=== PATIENT | female | born 1980 | race Caucasian/White ===

== ENCOUNTER 2018-07-21 16:21 | Inpatient (IN) | payer BC ==
[~2018-07-21] VITALS: Ht 160.1 cm; Wt 118.2 kg
[2018-07-22] VITALS (64 sets, daily range): BP systolic 108–155; BP diastolic 56–93; PULSE 80–111; TEMP 98.1–98.4
--- NOTE | 2018-07-22 07:05 | NUR ---
Patient ambulatory to LR5, changed into gowm, FHR/TOCO monitors placed and explained. Patient denies any regular contrations, vaginal bleeding, or leaking of fluid. VSS. 0715: SVE-2-3//-3 0725: IV started in right hand, blood drawn and to lab, and LR infusing. Plan of care discussed, consents gone over and signed, and packet given. 0740: Pitocin started per protocol at 2mU. Will continue to monitor.
[2018-07-22] MEDS ORDERED: CELEXA10 MG PO (07:33)
[2018-07-22] MEDS ORDERED: TIROSINT125 MC1 PO (07:33)
[2018-07-22] MEDS ORDERED: GLUCOPHAGE500 MG/TAB PO (07:34)
[2018-07-22] MEDS ORDERED: ZYRTEC 10MG10 MG PO (07:34)
[2018-07-22] MEDS ORDERED: PRENATAL MVI (07:34)
[2018-07-22 08:15] LABS: BASO # 0.1 (0.0-0.2); BASO % 0.4 % (0.0-2.0); EOS # 0.1 (0.0-0.7); EOS % 1.2 % (0-4.0); GRAN # 7.4 (1.4-6.5); GRAN % 65.9 % (42.2-75.2); HEMOGLOBIN 11.3 g/dl (12.5-16.0); LYMPH # 2.5 (1.2-3.4); LYMPH % 22.6 % (20.0-51.0); MEAN CELL VOLUME 88 fl (80.0-100.0); MEAN CORPUSCULAR HEMOGLOBIN 29 pg (27.0-31.0); MEAN CORPUSCULAR HGB CONC 33 g/dl (33.0-37.0); MEAN PLATELET VOLUME 10.8 fl (7.4-10.4); MONO # 0.9 (0.1-0.6); MONO % 7.7 % (1.7-9.3); PLATELET COUNT 326 K/mm3 (130-400); RED BLOOD COUNT 3.89 M/mm3 (4.10-5.30)
[2018-07-22 08:16] LABS: HEMATOCRIT 34.3 % (37.0-47.0)
--- NOTE | 2018-07-22 08:40 | NUR ---
Roles at nurses station reviewing FHR strip. 0845: Roles at bedside and SVE per physician / AROM not attempted at this time due to head being to high. Plan of care discussed and will continue to monitor. No new orders at this time.
--- NOTE | 2018-07-22 10:20 | NUR ---
Patient off monitor to void. 1023: Patient back on monitor and on birthing ball at bedside.
--- NOTE | 2018-07-22 13:20 | NUR ---
Roles at bedside to assess patient and FHR strip SVE-per physician /-3 and unable to AROM at this time. Dr. Chahal advises patient that she needs to make good change in order to get epidural and that in another 4 hours or when she returns after clinic and still no change in cervix than may send home, patient verbalizes understanding. Will continue to ugo.
--- NOTE | 2018-07-22 15:00 | NUR ---
FHR baseline 135bpm and maternal heart tracing at this time due to position. FHR adjusted. Patient off monitor to void.
--- NOTE | 2018-07-22 17:40 | NUR ---
Roles at bedside to assess patient and review FHR strip. 1742: SVE per physician 2-3//-2 and AROM done with clear fluid noted. Patient tolerates well and plan of care discussed.
--- NOTE | 2018-07-22 22:18 | NUR ---
2218- MARGOTH Gao at the bedside for epidural placement. 2220- Assisted pt to sitting upright position for epidural placement. SPO2 monitor started. EFM intermittently tracing maternal HR as coorelates with SPO2 monitor. 2235- Single shot given per [employer]. See anesthesia record for details. 2240- Assisted pt back to supine position in bed with left wedge. EFM and toco monitors readjusted. Plan of care reviewed.
[2018-07-23] VITALS (63 sets, daily range): BP systolic 90–135; BP diastolic 45–81; PULSE 85–137; TEMP 97.3–100.2
--- NOTE | 2018-07-23 06:05 | NUR ---
Roles at the bedside. FHR tracing reviewed. IUPC placed. Plan of care reviewed.
--- NOTE | 2018-07-23 06:15 | NUR ---
Roles at nurses station reviewing FHR strip/contractions. 0718: Dr Chahal at bedside and SVE-/-1 with bloody show at this time. 0726: Patient left lateral with right leg up across body resting on stirrup. -Orders from Dr Chahal to increase pitocin to 40mU and give ampicillin 2mg IV.
--- NOTE | 2018-07-23 08:00 | NUR ---
FHR baseline 145bpm. 0803: Patient repositioning at this time due to maternal position, Maternal heart rate tracing. Patient turned right lateral and left leg in stirrup. Difficulty tracing FHR and monitor adjusted.
--- NOTE | 2018-07-23 08:38 | NUR ---
Roles at bedside and SVE-/ with no change. Plan of care discussed at this time and need for eventually is discussed. Decision to recheck SVE in an hour and if no change will go back for . Risks and plan discussed per Roles and questions answered. Patient verbalizes understanding and agrees with plan
--- NOTE | 2018-07-23 09:00 | NUR ---
Dr Chahal continues to watch FHR strip at nurses station. 0942: SVE per physician / with bloody show and patient more uncomfortable with contractions. Orders per Roles to increase pitocin to 40Mu when time. 1000: Patient wedged right.
--- NOTE | 2018-07-23 09:20 | NUR ---
Orders from Dr. Chahal to increase pitocin at this time.
--- NOTE | 2018-07-23 10:00 | NUR ---
Dr Roles leaving unit and states she will be back to recheck EDWIN.
--- NOTE | 2018-07-23 10:47 | NUR ---
FHR baseline of 160 bpm and patient turned right lateral and maternal heart rate begins to trace. Pulse ox on patient and maternal heart rate 120s-130s bpm. FHR monitor adjusted.
--- NOTE | 2018-07-23 10:55 | NUR ---
FHR baseline 160bpm and maternal heart rate elevated. FHR monitor also trying to trace maternal heart rate and showing variable like decelerations. FHR monitor adjusted.
--- NOTE | 2018-07-23 11:05 | NUR ---
Roles at nurses station and evaluating FHR strip and maternal heartrate and updated. 1110: SVE-7/-1 and no change, Dr Roles explains that FHR has increasing and patients temperature/heart rate increasing may be indication of infection starting and decision for made. Pitocin off. Patient prepped for surgery, superpubic are shaved and cleaned with CHG. 1120: Off monitors and to OR.
--- NOTE | 2018-07-23 14:20 | NUR ---
New chucks and pad under patient. Pericare/kemp care done and abdominal binder applied.
--- NOTE | 2018-07-23 20:00 | NUR ---
VS and assessment completed at this time. SCDs removed from bilateral LE. Ambulated well to restroom at this time. Educated on pericare. Kemp catheter removed; 100mls of tea colored urine noted in kemp bag. Tolerated well. Fresh linens to bed. Clean peripad and gown in place. Ambulated well back to bed. Water pitcher full and pt instructed to drink water at this time. Ice pack to inc per patient request, verbalizes that her INC is burning when ambulating. POC reviewed. Denied questions or concerns.
--- NOTE | 2018-07-23 23:30 | NUR ---
Became tearful while obtaining VS. Reports she woke feeling anxious about needing to ambulate to the restroom. Became tearful at this time. Reports she is not having pain while resting in bed but know that it burned when she ambulated to the restroom earlier on. Discussed options for pain management. Denies needing anything. Ambulated well to the restroom at this time. Upon returning the bed pt became tearful again stating she was just feeling emotional however her INC did not hurt as bad with ambulating this time around. Assisted with . Fresh water to bedside.
[2018-07-24 04:00] VITALS: BP 100/49; PULSE 92; TEMP 97.2
[2018-07-24 06:43] LABS: HEMATOCRIT 29.3 % (37.0-47.0); HEMOGLOBIN 9.7 g/dl (12.5-16.0)
[2018-07-24 09:15] VITALS: BP 100/46; PULSE 85; TEMP 97.4
--- NOTE | 2018-07-24 10:03 | NUR ---
Initial visit; Parents thanked Head Cashier for offering congratulations and God's blessings for the of their son. Head Cashier thanked them for choosing [facility] as well.
[2018-07-24 16:59] VITALS: BP 102/56; PULSE 88
[2018-07-24 19:25] VITALS: BP 105/50; PULSE 92; TEMP 97.8
--- NOTE | 2018-07-24 19:25 | NUR ---
BEDSIDE REPORT RECEIEVED. CARE TAKEN OVER BY THIS RN.
[2018-07-25 07:20] VITALS: BP 128/72; PULSE 95
--- NOTE | 2018-07-25 07:21 | NUR ---
ASSESEMNT COMPLETED, PATIENT COMPLAINING OF DIZZYNESS, THAT MAKES HER FEEL LIKE SHE IS ON THE BOAT. VITALS WITHIN NORMAL RANGE. WILL CONTINUE TO MONITOR.
[2018-07-25] MEDS ORDERED: IBU600 MG PO (08:36)
[2018-07-25] MEDS ORDERED: PERCOCET 325 MG1 TA2 PO (08:36)
[2018-07-25] MEDS ORDERED: FERROUS SU325 MG/TAB PO (08:36)
[2018-07-25] MEDS ORDERED: CELEXA 20MG20 MG/TAB PO (08:37)
--- NOTE | 2018-07-25 17:23 | NUR ---
DISCHARGE EDUCATION REVIEWED, PATIENT STATES UNDERSTANDING, BANDS CHECKED AND ESCORTED OFF UNIT WITH FAMILY
== END 2018-07-25 17:05 | disposition home or self-care (01) | DRG 786 ==
LOC: LDR 16:21 → OB 07-23 12:45
PROVIDERS: ADMIT Obstetrics & Gynecology
PROC: 3E033VJ Introduction of Other Hormone into Peripheral Vein, Percutaneous Approach (ICD-10-PCS; 2018-07-22)
PROC: 10D00Z1 Extraction of Products of Conception, Low, Open Approach (ICD-10-PCS; principal; 2018-07-23)
DX: O75.89 Other specified complications of labor and delivery (principal); O41.1230 Chorioamnionitis, third trimester, not applicable or unspecified; D62 Acute posthemorrhagic anemia; O99.214 Obesity complicating childbirth; Z3A.39 39 weeks gestation of pregnancy; Z37.0 Single live birth; O62.0 Primary inadequate contractions; O99.344 Other mental disorders complicating childbirth; F41.9 Anxiety disorder, unspecified; O99.284 Endocrine, nutritional and metabolic diseases complicating childbirth; E03.9 Hypothyroidism, unspecified; E28.2 Polycystic ovarian syndrome; O99.02 Anemia complicating childbirth
CPT/HCPCS: J0290; J0690; J1885; J2210; J2270; J2370; J2590; J7120

== ENCOUNTER → 2020-09-27 | Outpatient (CLI) | payer BC ==
[~2020-09-27] MED LIST: CELEXA 20MG20 MG/TAB PO; CELEXA10 MG PO; FERROUS SU325 MG/TAB PO; GLUCOPHAGE500 MG/TAB PO; IBU600 MG PO; LEVAQUIN 5500 MG/TA1 PO; LEVAQUIN 750MG750 M1 PO; PERCOCET 325 MG1 TA2 PO; PRENATAL MVI; TIROSINT125 MC1 PO; ZYRTEC 10MG10 MG PO
== END ==
LOC: MC.RAD 06:59
DX: N63.10 Unspecified lump in the right breast, unspecified quadrant (principal); R92.0 Mammographic microcalcification found on diagnostic imaging of breast

== ENCOUNTER → 2020-10-05 | Outpatient (CLI) | payer BC | LOC: MC.RAD 09-25 08:00 | DX: N63.10 Unspecified lump in the right breast, unspecified quadrant (principal); N64.59 Other signs and symptoms in breast ==

== ENCOUNTER → 2020-10-18 | Outpatient (CLI) | payer BC | LOC: COL.VAS 10-10 10:00 | DX: C50.919 Malignant neoplasm of unspecified site of unspecified female breast (principal) ==

== ENCOUNTER 2020-11-04 17:27 | Emergency (ER) | payer BC ==
[~2020-11-04] VITALS: Ht 162.6 cm; Wt 106.8 kg
[~2020-11-04 17:27] MED LIST changes: -LEVAQUIN 5500 MG/TA1 PO; -LEVAQUIN 750MG750 M1 PO
[2020-11-04 17:40] VITALS: TEMP 99.1
[2020-11-04 19:09] LABS: INR 1.1 (0.8-3.0); PROTHROMBIN TIME 12.3 SECONDS (9.7-12.8)
[2020-11-04 19:10] LABS: ALBUMIN 3.8 gm/dL (3.5-5.0); BILIRUBIN,TOTAL 0.3 mg/dL (0.0-1.0); C-REACTIVE PROTEIN 4.6 mg/dL (0.0-0.9); CALCIUM 8.9 mg/dL (8.4-10.2); CREATININE, serum 0.7 (0.52-1.25); POTASSIUM 4.2 mmol/L (3.4-5.0); TOTAL PROTEIN 7.1 gm/dL (6.4-8.2)
[2020-11-04 19:20] LABS: HEMATOCRIT 41.6 % (37.0-47.0); HEMOGLOBIN 13.7 g/dl (12.5-16.0); MEAN CELL VOLUME 89 fl (80.0-100.0); MEAN CORPUSCULAR HEMOGLOBIN 29 pg (27.0-31.0); MEAN CORPUSCULAR HGB CONC 33 g/dl (33.0-37.0); MEAN PLATELET VOLUME 9.9 fl (7.4-10.4); PLATELET COUNT 154 K/mm3 (130-400); RED BLOOD COUNT 4.69 M/mm3 (4.10-5.30); REDCELL DISTRIBUTION WIDTH-CV 13.6 % (11.5-14.5)
[2020-11-04 19:44] LABS: BAND 14 % (0-10); LYMPHOCYTE 10 % (20.0-51.0); NEUTROPHILS 72 % (42.0-75.2)
[2020-11-04 20:00] LABS: COLLECTION METHOD CLEAN CATCH
[2020-11-04 20:12] LABS: PH 6 (5-8); SQUAMOUS EPITHELIAL 0-2 /hpf; URINE APPEARANCE Hazy; URINE BACTERIA Rare /hpf; URINE BILIRUBIN Negative (NEGATIVE); URINE BLOOD 2+ (NEGATIVE); URINE COLOR Yellow; URINE GLUCOSE Negative (NEGATIVE); URINE KETONE Negative (NEGATIVE); URINE LEUKOCYTE ESTERASE 2+ (NEGATIVE); URINE NITRATE Negative (NEGATIVE); URINE PROTEIN(semi-quant) Negative (NEGATIVE); URINE UROBILINOGEN Negative (NEGATIVE)
[2020-11-04] MEDS ORDERED: LEVAQUIN 750MG750 M1 PO (21:04)
[2020-11-04 21:12] VITALS: BP 132/75; PULSE 88
== END 2020-11-04 21:13 | disposition home or self-care (01) ==
LOC: COL.ER 17:27
PROVIDERS: Emergency Medicine
DX: D70.9 Neutropenia, unspecified (principal); R50.81 Fever presenting with conditions classified elsewhere; R50.2 Drug induced fever; C50.919 Malignant neoplasm of unspecified site of unspecified female breast; Z20.822 Contact with and (suspected) exposure to COVID-19
CPT/HCPCS: J7030

== ENCOUNTER 2020-11-24 17:13 | Emergency (ER) | payer BC ==
[~2020-11-24] VITALS: Ht 162.6 cm; Wt 105.5 kg
[~2020-11-24 17:13] MED LIST changes: +LEVAQUIN 750MG750 M1 PO
[2020-11-24 17:22] VITALS: TEMP 98.9
[2020-11-24 18:08] LABS: COLLECTION METHOD CLEAN CATCH
[2020-11-24 18:23] LABS: HEMOGLOBIN 12.2 g/dl (12.5-16.0); MEAN CELL VOLUME 90 fl (80.0-100.0); MEAN CORPUSCULAR HEMOGLOBIN 30 pg (27.0-31.0); MEAN CORPUSCULAR HGB CONC 33 g/dl (33.0-37.0); MEAN PLATELET VOLUME 9.3 fl (7.4-10.4); PLATELET COUNT 238 K/mm3 (130-400); REDCELL DISTRIBUTION WIDTH-CV 15.1 % (11.5-14.5)
[2020-11-24 18:25] LABS: HEMATOCRIT 36.9 % (37.0-47.0)
[2020-11-24 18:31] LABS: MUCOUS Present /lpf; PH 7 (5-8); SQUAMOUS EPITHELIAL 0-2 /hpf; URINE APPEARANCE Clear; URINE BACTERIA None Seen /hpf; URINE BILIRUBIN Negative (NEGATIVE); URINE BLOOD Negative (NEGATIVE); URINE COLOR Yellow; URINE GLUCOSE Negative (NEGATIVE); URINE KETONE Negative (NEGATIVE); URINE LEUKOCYTE ESTERASE Trace (NEGATIVE); URINE NITRATE Negative (NEGATIVE); URINE PROTEIN(semi-quant) Negative (NEGATIVE); URINE RBC 0-2 /hpf; URINE UROBILINOGEN Negative (NEGATIVE)
[2020-11-24 18:32] LABS: ALBUMIN 4.2 gm/dL (3.5-5.0); BILIRUBIN,TOTAL 0.4 mg/dL (0.0-1.0); CALCIUM 9.3 mg/dL (8.4-10.2); CREATININE, serum 0.67 (0.52-1.25); POTASSIUM 4.1 mmol/L (3.4-5.0); TOTAL PROTEIN 7.7 gm/dL (6.4-8.2)
[2020-11-24 18:53] LABS: BAND 7 % (0-10); LYMPHOCYTE 11 % (20.0-51.0); NEUTROPHILS 76 % (42.0-75.2)
[2020-11-24 18:54] LABS: PLATELET ESTIMATE NORMAL (NORMAL)
[2020-11-24] MEDS ORDERED: LEVAQUIN 5500 MG/TA1 PO (19:56)
[2020-11-24 21:15] VITALS: BP 130/84; PULSE 79
== END 2020-11-24 21:15 | disposition home or self-care (01) ==
LOC: COL.ER 17:13
PROVIDERS: Nurse Practitioner Primary Care
DX: I80.8 Phlebitis and thrombophlebitis of other sites (principal); N39.0 Urinary tract infection, site not specified; C50.911 Malignant neoplasm of unspecified site of right female breast
CPT/HCPCS: J1956; Q9967

== ENCOUNTER → 2021-02-06 | Outpatient (CLI) | payer BC ==
[~2021-02-06] MED LIST changes: +LEVAQUIN 5500 MG/TA1 PO
== END ==
LOC: COL.VAS 13:44
DX: C50.919 Malignant neoplasm of unspecified site of unspecified female breast (principal)

== ENCOUNTER → 2021-07-18 | Outpatient (CLI) | payer BC | LOC: COL.VAS 11:56 | DX: Z51.11 Encounter for antineoplastic chemotherapy (principal); C50.919 Malignant neoplasm of unspecified site of unspecified female breast ==

== ENCOUNTER → 2021-10-26 | Outpatient (CLI) | payer BC | LOC: COL.VAS 11:34 | DX: Z01.810 Encounter for preprocedural cardiovascular examination (principal); C50.211 Malignant neoplasm of upper-inner quadrant of right female breast ==